=== PATIENT | female | born 1935 | race Caucasian/White ===

== ENCOUNTER 2019-04-02 21:50 | Inpatient (IN) | payer MEDICARE, MEDICAID ==
[~2019-04-02] VITALS: Ht 160 cm; Wt 64.1 kg
[2019-04-02 22:07] VITALS: Ht 160 cm; Wt 64.1 kg
--- NOTE | 2019-04-02 22:16 | NUR ---
DR OZUNA, ERP, AWARE OF PT'S POX 88-91% ON RA. PT TO BE PLACED ON O2 POST ABG TEST PER VERBAL INSTRUCTIONS. PT BREATHING EASY AND UNLABORED. NO OBVIOUS DISTRESS AT THIS TIME.
[2019-04-02 22:44] LABS: PLATELET COUNT 162 x10^3mcL (130-400); RED CELL DISTRIBUTION WIDTH 12.2 % (11.5-14.5)
[2019-04-02 22:45] LABS: BASOPHIL % 0 % (0-2)
[2019-04-02 22:56] LABS: CALCIUM 8.5 mg/dL (8.5-10.1); CARBON DIOXIDE 28.3 mmol/L (21-32); CHLORIDE SERUM 105 mmol/L (98-107); CREATININE SERUM 0.8 mg/dL (0.6-1.0); GLUCOSE SERUM 115 mg/dL (74-106); POTASSIUM SERUM 3.8 mmol/L (3.5-5.1); SODIUM SERUM 140 mmol/L (136-145)
[2019-04-02 22:58] LABS: microscopic required? NO
--- NOTE | 2019-04-02 22:59 | NUR ---
PT REPORTS FEELING BETTER AND LESS DISORIENTED SINCE APPLYING O2 VIA NC. DAUGHTER ALSO AT BEDSIDE AND REPORTS PT IS LOOKING BETTER AND APPEARS MORE ORIENTED THAN BEFORE. PT AAOX4, VSS, SPEAKS IN FULL CLEAR SENTENCES, BREATHING EASY AND UNLABORED. ASSISTED ON BEDPAN. URINE SPECIMEN COLLECTED, TESTED AND SENT TO LAB FOR ADDITIONAL TESTING. PT TO X-RAY AT THIS TIME.
[2019-04-02 23:08] LABS: UA SPECIFIC GRAVITY <=1.005 (1.005-1.035); urine erythrocyte NEGATIVE (NEGATIVE)
[2019-04-02 23:09] LABS: ALKALINE PHOSPHATASE 69 U/L (46-116); ALT/SGPT 13 U/L (14-59); AST/SGOT 14 U/L (15-37); BILIRUBIN TOTAL 0.56 mg/dL (0.20-1.00)
[2019-04-02 23:11] LABS: ALBUMIN 2.8 g/dL (3.4-5.0); TOTAL PROTEIN, SERUM 6.1 g/dL (6.4-8.2)
--- NOTE | 2019-04-02 23:34 | NUR ---
PT BEING ADMITTED. NO CHANGE IN STATUS AT THIS TIME. SON AT BEDSIDE.
[2019-04-03] VITALS (8 sets, daily range): BP systolic 87–119; BP diastolic 33–51
--- NOTE | 2019-04-03 00:08 | NUR ---
PT ADMITTED (TELE ROOM#239B) - REPORT CALLED TO CAMILLA PEREZ. OPPORTUNITY GIVEN TO ASK QUESTIONS. PT'S BEING TRANSPORTED TO FLOOR BY RN AND EMT. PT'S CARE COMPLETED BY THIS RN AT THIS TIME.
[2019-04-03 01:05] LABS: T3 TOTAL 0.51 ng/mL
--- NOTE | 2019-04-03 01:06 | NUR ---
RECEIVED PT FROM ED VIA IRA. ORIENTED PT TO ROOM AND SURROUNDINGS. IV NOTED TO R WRIST PATENT AND INTACT. TELE 9 PLACED ON PT READING STA. INSTRUCTED PT ON THE USE OF CALL LIGHT FOR ASSISTANCE. ENDORSED PT TO PRIMARY NURSE CAMILLA
[2019-04-03 01:10] LABS: CHOLESTEROL/HDL RATIO 3.2
--- NOTE | 2019-04-03 01:10 | NUR ---
RECEIVED PT FROM CHRIS MEDEL. PT AOX4. DENIES VASQUEZ/DIZZINESS. ON TELE #9, SR, HR 95. DENIES CP/PRESSURE. DENIES SOB/DIFFICULTY BREATHING, ON 2L NC. IV TO R. WRIST, INTACT AND PATENT. BP 94/39, NITRO PATCH REMOVED AND SKIN CLEANED. BED IN LOWEST POSITION. CALL LIGHT WITHIN REACH. WILL CONTINUE TO MONITOR.
[2019-04-03 01:19] LABS: FREE T4 0.94 ng/dL (0.76-1.46); FREE THYROXINE INDEX 2.1 ug/dL (1.4-4.5)
--- NOTE | 2019-04-03 01:47 | NUR ---
PT BP 87/33 MAP 59, HR 94. IN NO ACUTE DISTRESS. DR. TEE INFORMED, BOLUS ORDERED. BOLUS INITIATED. WILL CONTINUE TO MONITOR.
--- NOTE | 2019-04-03 02:50 | NUR ---
BOLUS COMPLETE, BP IS NOW 93/40 MAP 63, HR 89. PT ASYMPTOMATIC IN NO ACUTE DISTRESS. DR. TEE NOTIFIED. NO FURTHER ORDERS AT THIS TIME. WILL CONTINUE TO MONITOR.
[2019-04-03 06:43] LABS: CALCIUM 7.9 mg/dL (8.5-10.1); CHLORIDE SERUM 110 mmol/L (98-107); CREATININE SERUM 0.8 mg/dL (0.6-1.0); GLUCOSE SERUM 110 mg/dL (74-106); SODIUM SERUM 146 mmol/L (136-145)
[2019-04-03 06:44] LABS: PLATELET COUNT 148 x10^3mcL (130-400); RED CELL DISTRIBUTION WIDTH 12.7 % (11.5-14.5)
--- NOTE | 2019-04-03 07:20 | NUR ---
RECEIVED PT FROM SHIFT NURSE A/OX4 RESTIN IN BED. NO ACUTE DISTRESS NOTED. RESP EVEN AND UNLABORED ON 2LNC. 02 SAT 95% IV INTACT AND PATENT. FALL PRECAUTIONS IN PLACE. BED IN LOW POSITION. CALL LIGHT WITHIN REACH. WILL CONTINUE TO MONITOR.
[2019-04-03 07:27] LABS: BASOPHIL % 0 % (0-2)
--- NOTE | 2019-04-03 07:34 | NUR ---
RECEIVED CALL FROM LAB TROP [phone]. PAGED DR. DAVIS. AWAITING CALL BACK
--- NOTE | 2019-04-03 09:54 | NUR ---
PT RESTING IN BED TALKING WITH FAMILY MEMBERS. NO ACUTE DISTRESS NOTED. CALL LIGHT WITHIN REACH. WILL CONTINUE TO MONITOR.
--- NOTE | 2019-04-03 12:02 | NUR ---
PT SITTING UP IN BED. EXPESSED RELIEF OF BILATERAL LEG PAIN. CALL LIGHT WITHIN REACH. WILL CONTINUE TO MONITOIR.
--- NOTE | 2019-04-03 12:20 | NUR ---
PT AMBUALTING WITH PHYSICAL THERAPIST IN HALLWAY.
--- NOTE | 2019-04-03 13:30 | NUR ---
PT LEFT FOR PROCEDURE
--- NOTE | 2019-04-03 13:50 | NUR ---
PT BACK FROM PROCEDURE.
--- NOTE | 2019-04-03 14:00 | NUR ---
ECHOCARDIOGRAM PENDING-NOT IN ROOM
--- NOTE | 2019-04-03 16:15 | NUR ---
PT RESTING IN BED TALKING WTIH FAMILY MEMBERS. NO ACUTE DISTRESS NOTED. CALL LIGHT WITHIN REACH. WILL CONTINUE TO MONITOR.
--- NOTE | 2019-04-03 17:46 | NUR ---
RECEIVED CALL FROM LAB TROP [phone]. PAGED DR. DAVIS. AWAITING CALL BACK.
--- NOTE | 2019-04-03 18:25 | NUR ---
PT SITTING UP IN BED WATCHING TV. RESP EVEN AND UNLABORED ON 2L NC. IV INTACT AND PATENT. BED IN LOW POSITION. FAMILY MEMBER AT BEDSIDE. CALL LIGHT WITHIN REACH. WILL BE ENDORSED.
--- NOTE | 2019-04-03 19:58 | NUR ---
PT. RESTING IN BED COMFORTABLY, CHILDREN AT BEDSIDE. NO S/S OF COMPLAINTS AT THIS TIME. BREATHING EASY AND UNLABORED, ON 2L NC, 02 SAT 94%. A/O X4, CALM AND COOPERATIVE. TELE 9, NSR. NO COMPLAINTS OF CHEST PAIN, N/V, DIZZINESS OR PALPATATIONS. BOWEL SOUNDS ACTIVE X4, LAST BM 04/02. BLANCHABLE REDNESS TO COCCYX COVERED WITH OPTIFOAM. R FOREARM IV, CDI. BED AT LOWEST POSITION, CALL LIGHT WITHIN REACH. WILL CONTINUE TO MONITOR.
[2019-04-03] MEDS ORDERED: VENLAFAXINE37.5 M2 PO (23:10)
[2019-04-03] MEDS ORDERED: LEVOTHYROXIN0.025 M2 PO (23:11)
[2019-04-03] MEDS ORDERED: OXYBUTYNIN CHLOR5 MG PO (23:12)
[2019-04-03] MEDS ORDERED: PANTOPRAZOLE SO40 M1 PO (23:13)
[2019-04-03] MEDS ORDERED: PRIMIDONE50 MG PO (23:14)
--- NOTE | 2019-04-03 23:39 | NUR ---
PT. MED REC UPDATED. RESIDENT PAGED. WILL CONTINUIE TO MONITOR.
--- NOTE | 2019-04-04 00:10 | NUR ---
PT RESTING COMFORTABLY IN BED WITH EYES CLOSED. NO S/S OF PAIN AT THIS TIME. BREATHING EVEN AND UNLABORED ON 2L NC. BED AT LOWEST POSITION, CALL LIGHT WITHIN REACH. WILL CONTINUE TO MONITOR.
--- NOTE | 2019-04-04 00:24 | NUR ---
SPOKE IN PERSON TO RESIDENT SERGIO REGUARDING PTS MED REC BEING UPDATED, AND THE PT REQUESTING AMBIAN TO SLEEP. DR. HILL STATED "I'LL LOOK FOR IT." WAITING FOR ADDITIONAL ORDER. WILL CONTINUE TO MONITOR.
[2019-04-04 05:58] VITALS: BP 106/49
[2019-04-04 06:20] LABS: BASOPHIL % 0.2 % (0-2); PLATELET COUNT 140 x10^3mcL (130-400)
--- NOTE | 2019-04-04 06:24 | NUR ---
PT LAYING IN BED COMFORTABLY. NO S/S OF PAIN AT THIS TIME. BREATHING EVEN AND UNLABORED. NO SOB NOTED. NO SIGNIFICANT CHANGES THIS SHIFT. BED AT LOWEST POSITION. CALL LIGHT WITHIN REACH. WILL CONTINUE TO MONITOR.
[2019-04-04 06:51] LABS: CALCIUM 8.5 mg/dL (8.5-10.1); CARBON DIOXIDE 27.8 mmol/L (21-32); CHLORIDE SERUM 111 mmol/L (98-107); CREATININE SERUM 0.6 mg/dL (0.6-1.0); GLUCOSE SERUM 78 mg/dL (74-106); POTASSIUM SERUM 3.4 mmol/L (3.5-5.1); SODIUM SERUM 146 mmol/L (136-145)
--- NOTE | 2019-04-04 07:16 | NUR ---
RECEIVED PT FROM SHIFT NURSE ASLEEP BUT AROUSABLE. RESP EVEN AND UNLABORED ON 2L NC. IV INTACT AND PATENT. FAMILY MEMBER AT BEDSIDE. FALL PRECAUTIONS IN PLACE. BED IN LOW POSITION. CALL LIGHT WITHIN REACH. WILL CONTINUE TO MONITOR.
--- NOTE | 2019-04-04 08:18 | NUR ---
MADE PASTE UP WORKER CATHERINE AWARE OF TROP [phone]. NO NEW ORDERS GIVEN.
--- NOTE | 2019-04-04 08:30 | NUR ---
MADE DELIVERY ROOM CLERK TATIANA AWARE OF HOME MEDICATIONS.
--- NOTE | 2019-04-04 09:08 | NUR ---
PT EXPRESSED RELIEF OF LEG PAIN. NO ACUTE DISTRESS NOTED. FAMILY MEMBERS AT BEDSIDE. WILL CONTINUE TO MONITOR.
[2019-04-04 09:27] VITALS: BP 98/45
--- NOTE | 2019-04-04 09:50 | NUR ---
UA SAMPLE SENT TO LAB.
--- NOTE | 2019-04-04 10:44 | NUR ---
ECHOCARDIOGRAM COMPLETED.
--- NOTE | 2019-04-04 11:00 | NUR ---
PT AMBULATING WITH PHYSICAL THERPAIST.
--- NOTE | 2019-04-04 13:02 | NUR ---
PT C/O OF BILATERAL LEG PAIN. GAVE NORCO ORDERED. WILL CONTINUE TO MONITOR.
[2019-04-04 13:25] VITALS: BP 124/49
--- NOTE | 2019-04-04 13:38 | NUR ---
PT ASLEEP BUT AROUSABLE. FAMILY MEMBER AT BEDSIDE. CALL LIGHT WITHIN REACH. WILL CONTINUE TO MONITOR.
--- NOTE | 2019-04-04 15:20 | NUR ---
PT SITTING UP IN BED RESTING. NO C/O OF LEG PAIN AT THIS TIME. CALL LIGHT WITHN REACH. WILL CONTINUE TO MONITOR.
[2019-04-04 16:49] VITALS: BP 104/50
--- NOTE | 2019-04-04 18:22 | NUR ---
PT LEFT FOR PROCEDURE
--- NOTE | 2019-04-04 18:45 | NUR ---
PT BACK FROM PROCEDURE.
--- NOTE | 2019-04-04 18:55 | NUR ---
PT RESTING IN BED TALKING WITH FAMILY MEMBERS. RESP EVEN AND UNLABORED ON 2LNC. IVS INTACT AND PATENT. BED IN LOW POSITION. CALL LIGHT WITHIN REACH. WILL BE ENDORSED.
--- NOTE | 2019-04-04 20:08 | NUR ---
PT RESTING IN BED COMFORTABLY, FAMILY AT BEDSIDE. DENIES PAIN OR DISCOMFORT AT THIS TIME. A/O X4, CALM AND COOPERATIVE. TELE 9, NSR. DENIES CHEST PAIN, DIZZINESS, N/V, OR PALPATATIONS. PALPABLE PULSES, NO EDEMA NOTED. LUNG SOUNDS CTA, DENIES SOB. O2 SAT 100% ON 2L NC. BOWEL SOUNDS ACTIVE X4, NO ABD PAIN OR TENDERNESS TO PALPATION. SMALL RED BLISTER TO RLE IT TRAINING SPECIALIST. BALNCHABLE REDNESS TO COCCYX IT TRAINING SPECIALIST. R FOREARM IV CDI. BED AT LOWEST POSITION, CALL LIGHT WITHIN REACH. WILL CONTINUE TO MONITOR.
[2019-04-04 20:17] VITALS: BP 120/54
--- NOTE | 2019-04-04 23:19 | NUR ---
PT COMPLAINING OF INSOMIA, MEDICATED PT WITH PRN AMBIEN. WILL MONITOR.
--- NOTE | 2019-04-05 00:58 | NUR ---
PT RESTING COMFORTABLY IN BED. DAUGHTER SLEEPING AT BEDSIDE. NO COMPLAINTS OF PAIN AT THIS TIME. BREATHING EVEN AND UNLABORED ON 2L NC. DENIES SOB. BED AT LOWEST POSITION. CALL LIGHT WITHIN REACH. WILL CONTINUE TO MONITOR.
--- NOTE | 2019-04-05 02:17 | NUR ---
PT RESTING IN BED WITH EYES CLOSED. LIGHTLY SNORING. BREATHING EVEN/UNLABORED ON 2L NC. WILL CONTINUE TO MONITOR.
--- NOTE | 2019-04-05 02:21 | NUR ---
I HAVE REVIEWED THE DATA COLLECTION BY CHRIS JONES: THO STAFFORD ENTERED ON 04/04-04/05 I CONCUR WITH THE DATA AND ANY EXCEPTIONS OR COMMENTS ARE LISTED BELOW:
--- NOTE | 2019-04-05 02:35 | NUR ---
PT C/O HIP PAIN WITH MOVEMENT 5/10. NORCO GIVEN PER ORDER. WILL MONITOR FOR RELIEF.
[2019-04-05 05:27] VITALS: BP 118/63
--- NOTE | 2019-04-05 06:38 | NUR ---
PT RESTING IN BED COMFORTABLY. NO S/S OF PAIN AT THIS TIME. NO COMPLAINTS SOB ON 2L NC. NO SIGNIFICANT CHANGES THIS SHIFT. CALL LIGHT WITHIN REACH, BED AT LOWEST POSITION. WILL ENDORSE TO DAY NURSE.
[2019-04-05 06:42] LABS: BASOPHIL % 0.2 % (0-2); PLATELET COUNT 170 x10^3mcL (130-400)
[2019-04-05 07:11] LABS: CARBON DIOXIDE 34.4 mmol/L (21-32); CHLORIDE SERUM 108 mmol/L (98-107); CREATININE SERUM 0.6 mg/dL (0.6-1.0); GLUCOSE SERUM 80 mg/dL (74-106); POTASSIUM SERUM 4.1 mmol/L (3.5-5.1); SODIUM SERUM 146 mmol/L (136-145)
--- NOTE | 2019-04-05 07:39 | NUR ---
AT 0720 - RECEIVED PATIENT FROM NIGHT NURSE. AWAKE, ALERT AND ORIETNED X 4. MONITOR SHOWING SINUS RHYTHM; RATE 70'S. RESPIRATIONS REGULAR. ON O2 AT 2L/MIN. IV AT TKO RATE. FAMILY MEMEBER AT BEDSIDE.
[2019-04-05 09:35] VITALS: BP 130/46
--- NOTE | 2019-04-05 10:17 | NUR ---
AT 0800 - PATIENT HAS EATEN BREAKFAST. INSTRUCTED PATIENT IN USE OF INSENTIVE SPIROMETER. AT 0815 - MEDICATED WITH NORCO PER EMAR FOR C/O HIP PAIN. AT 0925 - REPORTS GOOD RELIEF OF PAIN. SAYS THAT SHE FEELS RELAXED. FAMILY AT BEDSIDE.
--- NOTE | 2019-04-05 12:49 | NUR ---
HAS EATEN SMALL AMOUNT OF FOOD FROM LUNCH TRAY. NOTED DROP IN O2 SAT TO 84% ON ROOM AIR - PATIENT HAD TAKEN NASAL CANNULA OFF WHILE EATING LUNCH. NOW BACK ON O2 VIA NC AT 2L. O2 SAT 95%.
[2019-04-05 13:59] VITALS: BP 147/50
--- NOTE | 2019-04-05 14:45 | NUR ---
AMBULATED IN HALLWAY USING WALKER AND PORTABLE O2. TOLERATED WELL. DENIES ANY PAIN. NOW SITTING IN CHAIR.
--- NOTE | 2019-04-05 15:45 | NUR ---
PATIENT AMBULATED TO BATHROOM X 1. NOW BACK IN BED.
[2019-04-05 18:31] VITALS: BP 121/55
--- NOTE | 2019-04-05 18:50 | NUR ---
AT 1700 - PAITENT OUT OF BED, SITTING IN CHAIR. FAMILY ATTENTIVE TO PATIENT'S NEEDS. EXPECTORATING BROWN SPUTUM. HAS BEEN USING INSENTIVE SPIROMETER EFFECTIVELY. AT 1815 - HAS EATEN DINNER. REMAINS IN CHAIR. VSS. AFEBRILE. GOOD URINE OUTPUT. VOIDING FREQUENTLY. WILL ENDORSE CARE TO NIGHT NURSE.
--- NOTE | 2019-04-05 20:00 | NUR ---
PT A/A/O X4, FAMILY AT BEDSIDE. PT DENIES DIZZINESS AND HEADACHE. BREATH SOUNDS CLEAR. BREATHING EVEN AND UNLABORED ON 2L NC, SPO2 98%. DENIES CHEST PAIN AND PRESSURE. BOWEL SOUNDS ACTIVE. NO C/O N/V AND ABD PAIN. IV SALINE LOCK INTACT ON THE RAC AND RIGHT FOREARM. MADE PT COMFORTABLE. PLACED CALL LIGHT WITH IN REACH. WILL CONTINUE TO MONITOR.
[2019-04-05 20:52] VITALS: BP 112/52
--- NOTE | 2019-04-05 21:23 | NUR ---
PT C/O HIP PAIN. GAVE PT NORCO PO. PT TOLERATED IT WELL. WILL CONTINUE TO MONITOR.
--- NOTE | 2019-04-05 23:11 | NUR ---
PT C/O HEART BURN. DR. EDWARD AND DR. MONDRAGON MADE AWARE. ORDERED PROTONIX PO. PT TOOK PROTONIX AND TOLERATED IT WELL. WILL CONTINUE TO MONITOR.
--- NOTE | 2019-04-06 01:45 | NUR ---
PT C/O DIFFICULTY SLEEPING. DR. DAMON NOTIFIED PERSONALLY. WAITING FOR ORDERS WILL CONTINUE TO MONITOR.
--- NOTE | 2019-04-06 02:17 | NUR ---
PT AWAKE. INFORMED THE PT THAT MD WAS NOTIFIED AND NO NEW ORDER THUS FAR. WILL CONTINUE TO MONITOR.
--- NOTE | 2019-04-06 06:11 | NUR ---
PT RESTING WITH EYES CLOSED. EASILY AROUSABLE WITH VERBAL STIMULI. NO C/O PAIN THUS FAR. MADE PT COMFORTABLE. WILL ENDORSE TO THE AM NURSE ACCORDINGLY.
[2019-04-06 06:20] VITALS: BP 120/50
[2019-04-06 06:35] LABS: BASOPHIL % 0.5 % (0-2); PLATELET COUNT 192 x10^3mcL (130-400); RED CELL DISTRIBUTION WIDTH 12.7 % (11.5-14.5)
[2019-04-06 06:49] LABS: CALCIUM 9.4 mg/dL (8.5-10.1); CARBON DIOXIDE 33.2 mmol/L (21-32); CHLORIDE SERUM 106 mmol/L (98-107); CREATININE SERUM 0.6 mg/dL (0.6-1.0); GLUCOSE SERUM 80 mg/dL (74-106); POTASSIUM SERUM 4.2 mmol/L (3.5-5.1); SODIUM SERUM 145 mmol/L (136-145)
--- NOTE | 2019-04-06 07:30 | NUR ---
PT ENDORSE TO ME THIS MORNING, LAYING IN BED RESTING. AA/O X4 BREAGTHING EVEN AND UNLABORED ON 2L NC, I.S AT BEDSIDE, TOLERATING WELL, NO ACUTE RESP DISTRESS OR SOB NOTED. TELE 9 SR NOTED, HR 60, DENIES ANY CP OR PRESSURE. BOWEL SOUNDS ACTIVE IN ALL FOUR QUADS.VOIDS FREELY, BEDPAN BRP WITH ASSIST. GEN WEAKNESS NOTED, OK TO SIT UP IN CHAIR. IV TO MARTIN RFA INTACT AND PATENT, HEPLOCKED. WILL CONTINUE TO MONITOR.
--- NOTE | 2019-04-06 08:22 | NUR ---
WILL ENDORSE TO CHRIS BOB.
--- NOTE | 2019-04-06 08:33 | NUR ---
RESUMING CARE OF PT. PT SITTING UP IN BED. RESPIRATORY THERAPIST AT BEDSIDE FOR BREATHING TREATMENT. FAMILY AT BEDSIDE. WILL CONTINUE TO MONITOR. CALL LIGHT IN REACH. BED IN LOWEST POSITION.
[2019-04-06 09:02] VITALS: BP 119/49
--- NOTE | 2019-04-06 10:53 | NUR ---
PT SITTING UP IN BED. NO ACUTE RESP DISTRESS NOTED ON 2L NC. GIVEN PO MEDS. TOLERATED WELL. PT DENIES ANY PAIN AT THIS TIME. PT STATES "I JUST FEEL REALLY TIRED. I DID NOT SLEEP WELL." IV TO RFA SALINE LOCKED. NO REDNESS OR SWELLING NOTED. WILL CONTINUE TO MONITOR. CALL LIGHT IN REACH. BED IN LOWEST POSITION.
--- NOTE | 2019-04-06 11:33 | NUR ---
BobbyT. NOTES PATIENT REFUSED TO BE SEEN BY P.T. AT THIS TIME, STATES WANTING TO GET SOME REST, WILL ATTEMPT AGAIN LATER.
[2019-04-06 12:16] VITALS: BP 112/52
--- NOTE | 2019-04-06 12:27 | NUR ---
PT IN BED RESTING. NO ACUTE RESP DSITRESS NOTED ON 2L NC. PHYSICAL THERAPIST KOLBY AT BEDSIDE. PT OUT OF BED AND USING WALKER ON RA. ASSISTED PT TO CHAIR AT BEDSIDE. SATING 89% ON RA. PLACED BACK ON NC 2L. PT C/O DIZZINESS WHEN AMBULATING. GIVEN PO MEDS. TOLERATED WELL. IV ANTIBIOITCS INFUSING ORDERED. ENCOURAGED PT TO USE CALL LIGHT WHEN WANTING TO GO BACK TO BED. WILL CONTINUE TO MONITOR. CALL LIGHT IN REACH. BED IN LOWEST POSITION.
--- NOTE | 2019-04-06 16:19 | NUR ---
PHYSICAL THERAPY DAILY NOTES CO-SIGN All documentation done by the Continuous Weld Pipe Mill Supervisor for 04/06/19 has been reviewed. I agree with the documentation. Reviewed/Co-Signed by: Ellyn Flores PT Documentation Done by:KOLBY FOSTER PTA
[2019-04-06 17:20] VITALS: BP 128/64
--- NOTE | 2019-04-06 18:34 | NUR ---
PT SITTING UP IN BED SLEEPING. NO ACUTE RESP DISTRESS NOTED ON 2L NC. FAMILY AT BEDSIDE. IV PATENT AND INFUSING TO RFA. NO REDNESS OR SWELLING NOTED. WILL ENDORSE TO LOOM CHANGEOVER OPERATOR RN. CALL LIGHT IN REACH. BED IN LOWEST POSITION.
--- NOTE | 2019-04-06 20:00 | NUR ---
RECEIVED PT IN BED, A/O X4, DENIES HEADACHE/DIZZINESS. KAKE,RESP. EVEN AND UNLABORED. ON ROOM AIR AT THIS TIME. NO ACUTE DISTRESS NOTED. DENIES CP OR ANY DISCOMFORT AT THIS TIME. AFEBRILE AND VITAL SIGNS STABLE.HL X2, INTACT AND PATENT. VOIDING FREELY VIA BEDPAN. HS CARE DONE. DAUGHTER AT THE BEDSIDE, VERY SUPPORTIVE. CALL LIGHT WITHIN REACH. WILL CONTINUE TO MONITOR.
[2019-04-06 20:19] VITALS: BP 140/49
--- NOTE | 2019-04-06 21:00 | NUR ---
CONSENT FOR PICC LINE INSERTION OBTAINED FROM PT,S DAUGHTER. WILL CONTINUE TO MONITOR.
--- NOTE | 2019-04-06 21:00 | NUR ---
COMPLAINED OF BACK PAIN,5/10, REQUESTING PAIN MED,MEDICATED WITH NORCO PO ORDERED. WILL CONTINUE TO MONITOR.
--- NOTE | 2019-04-06 22:22 | NUR ---
REQUESTED SLEEPING MED. MEDICATED WITH AMBIEN. WILL CONTINUE TO MONITOR.
--- NOTE | 2019-04-07 03:16 | NUR ---
EYES CLOSED, APPEARS ASLEEP, EASILY AROUSABLE. NO ACUTE DISTRESS NOTED. APPEARS ACOMFORTABLE. CALL LIGHT WITHIN REACH. WILL CONTINUE TO MONITOR.
[2019-04-07 05:36] VITALS: BP 130/58
--- NOTE | 2019-04-07 06:37 | NUR ---
SLEPT WELL . NO COMPLAINTS NOTED. AFEBRILE AND VITAL SIGNS STABLE. RESP. EVEN AND UNLABORED. NO ACUTE DISTRESS NOTED. DUE MEDS GIVEN ORDERED, DEVANTE. WELL.REPOSITIONED WTH ASSIST. VOIDING FREELY. WILL ENDORSE TO INCOMING NURSE.
--- NOTE | 2019-04-07 07:10 | NUR ---
RECIEVED PT FROM NIGHT NURSE. PT IS LAYING DOWN IN BED WITH HOB UP RESTING. PT LOOKS TO BE IN NO ACUTE DISTRESS AT THIS TIME AND DENIES ANY PAIN. RESPIRATIONS EVEN AND UNLABORED ON 2L NC. IV SITE PATENT WITH NO SIGNS OF ERYTHEMA OR SWELLING. BED IN LOWEST POSITION, CALL LIGHT WITHIN REACH. WILL CONTINUE TO MONITOR.
[2019-04-07 07:41] LABS: CALCIUM 9.6 mg/dL (8.5-10.1); CARBON DIOXIDE 31.6 mmol/L (21-32); CHLORIDE SERUM 106 mmol/L (98-107); CREATININE SERUM 0.7 mg/dL (0.6-1.0); GLUCOSE SERUM 80 mg/dL (74-106); SODIUM SERUM 143 mmol/L (136-145)
[2019-04-07 07:49] LABS: BASOPHIL % 0.9 % (0-2); PLATELET COUNT 194 x10^3mcL (130-400); RED CELL DISTRIBUTION WIDTH 12.7 % (11.5-14.5)
[2019-04-07 08:10] VITALS: BP 130/60
--- NOTE | 2019-04-07 11:00 | NUR ---
PICC LINE NURSE ARRIVED. OBTAINED ALL NEEDED SUPPLIES FOR PICC LINE NURSE. PT LOOKS TO BE IN NO ACUTE DISTRESS AT THIS TIME. CONSENT IS SIGNED AND IN THE CHART. WILL CONITNUE TO MONITOR.
[2019-04-07] MEDS ORDERED: NOVAPLUS ZOSYN50 ML IV (11:02)
--- NOTE | 2019-04-07 11:30 | NUR ---
PICC LINE INSERTED. PRODUCTION GENERALIST SARWAT AWARE. STAT CHEST X-RAY ORDERED TO VERIFY PLACEMENT. PT LOOKS TO BE IN NO ACUTE DISTRESS AND DENIES ANY PAIN AT THIS TIME. WILL CONITNUE TO MONITOR.
[2019-04-07 11:41] VITALS: BP 132/58
--- NOTE | 2019-04-07 12:05 | NUR ---
RADIOLOGY AT BEDSIDE TO VERIFY PICC LINE PLACEMENT.
--- NOTE | 2019-04-07 15:00 | NUR ---
HOME O2 EVAL DONE AND GATHERED THE FOLLOWING DATA: SPO2 ON RA WHILE AT REST IS 91%, SPO2 ON RA WHILE AMBULATING 80%, SPO2 ON OXYGEN WHILE AMBULATING IS 94%. HOME EVAL PERFORMED WITH PHYSICAL THERAPIST. NO INCIDENT WAS NOTED. CLIPPER MACHINE OPERATOR AND RN IN CHARGE FOR THE PT INFORMED. WILL CONT TO MONITOR
[2019-04-07 15:54] VITALS: BP 132/58
--- NOTE | 2019-04-07 16:55 | NUR ---
PHYSICAL THERAPY DAILY NOTES CO-SIGN All documentation done by the Route Vending Machine Servicer for 04/07/19 has been reviewed. I agree with the documentation. Reviewed/Co-Signed by: Aureliano Shah PT Documentation Done by:KOLBY FOSTER PTA
[2019-04-07 18:05] VITALS: BP 138/56
--- NOTE | 2019-04-07 18:30 | NUR ---
PT IS LAYING DOWN IN BED WITH HOB UP RESTING. RESPIRATIONS EVEN AND UNLABORED ON 2L NC. PICC LINE IS PATENT AND FLUSHES WITH BLOOD RETURN. BED IN LOWEST POSITION, CALL LIGHT WITHIN REACH. WILL ENDORSE TO ONCOMING SHIFT.
--- NOTE | 2019-04-07 20:00 | NUR ---
RECEIVED PT IN BED, RESTING QUIETLY. [place] DENIES PAIN OR ANY DISCOMFORT AT THIS TIME. RESP. EVEN AND UNLABORED. ON ROOM AIR, DENIES SOB. NO ACUTE DISTRESS NOTED. ABD. SOFT, NON DISTENDED, BS ACTIVE. NO N/V NOTED. PICC LINE TO RAC, WITH DOUBLE LUMEN, INTACT AND PATENT, SITE DRESSING CLEAN. VOIDS FREELY VIA BEDPAN. ASSISTED WITH HS CARE. CALL LIGHT WITHIN REACH. WILL CONTINUE TO MONITOR.
[2019-04-07 21:19] VITALS: BP 126/50
--- NOTE | 2019-04-07 22:22 | NUR ---
REQUESTED SLEEPING MED, MEDICATED WITH AMBIEN ORDERED. WILL CONTINUE TO MONITOR.
--- NOTE | 2019-04-08 01:58 | NUR ---
EYES CLOSED, APPEARS ASLEEP, EASILY AROUSABLE. RESP. EVEN AND UNLABORED. 02 AT 2L/MIN VIA NC , DEVANTE. WELL. NO ACUTE DISTRESS NOTED. WILL CONTINUE TO MONITOR.
[2019-04-08 05:21] VITALS: BP 130/55
--- NOTE | 2019-04-08 06:17 | NUR ---
NO COMPLAINTS NOTED. NO SIGNIFICANT CHANGE NOTED IN PT,S CONDITION.AFEBRILE AND VITAL SIGNS STABLE. RESP. EVEN AND UNLABORED. NO ACUTE DISTRESS NOTED. DUE MEDS GIVEN ORDERED, DEVANTE. WELL. KEPT COMFORTABLE. WILL CONTINUE TO MONITOR.
[2019-04-08 09:16] VITALS: BP 117/52
--- NOTE | 2019-04-08 10:15 | NUR ---
AT 0720 - RECEIVED PATIENT FROM NIGHT NURSE. SLEEPING. RESPIRATIONS REGULAR. AT 0830 - PATIENT AWAKE, ALERT AND ORIENTED. REFUSED BREAKFAST. PATIENT IS FOR DISCHARGE HOME TODAY AFTER HOME O2 EQUIPMENT ARRIVES. AT 0950 - PATIENT'S FAMILY AT BEDSIDE. PATIENT SITTING UP. FAMILY REPROTS NO BM FOR 9 DAYS. SPOKE WITH POLISHER APPRENTICE MARIO. SHE WUILL PLACE ORDER. AT 1010 - MEDICATED WITH LACTULOSE PER EMAR. PATIENT SITTING IN CHAIR. PT AT BEDSIDE TO AMBULATE PATIENT.
--- NOTE | 2019-04-08 12:15 | NUR ---
AT 1135 - RECEIVED CALL FROM VINI AT [facility]. TEL [phone] HE WOULD LIKE TO BE CALLED WITH TIME OF PATIENT'S DISCHARGE. PATIENT REPORTS THAT SHE WILL CALLED BY COMPANY DELIVERING HER HOME O2 AND THAT SHE WAS TOLD IT WOULD BE DELIVERED BETWEEN 14 -1600 TODAY
--- NOTE | 2019-04-08 13:33 | NUR ---
SEEN BY DR CORONADO. MARIA LUZ HAS EATEN SOME LUNCH. SLEEPING ON AND OFF TODAY. HAS URINARY FREQUENCY. VOIDING IN BEDPAN.
--- NOTE | 2019-04-08 13:51 | NUR ---
PHYSICAL THERAPY DAILY NOTES CO-SIGN All documentation done by the Glue Jointer Operator for 04/08/19 has been reviewed. I agree with the documentation. Reviewed/Co-Signed by: Ellyn Flores PT Documentation Done by:KOLBY FOSTER PTA
[2019-04-08 16:59] VITALS: BP 120/52
--- NOTE | 2019-04-08 17:52 | NUR ---
AT 1655 - O2 EQUIPMENT DELIVERED TO PATIENT'S ROOM - CONCENTRATOR AND 4 CYLINDERS OF OXYGEN. CALLED [employer] AND NOTIFIED THEM THAT PATIENT WILL BE GOING HOME AFTER 1800 TONIGHT. THEY WILL DELIVER MEDICATIONS TO PATIENT'S HOME AT 1930. CALLED PATIENT'S FAMILY AND SPOKE WITH SON. INFORMED HIM THAT OXYGEN HAS BEEN DELIVERED AND THAT PATIENT CAN NOW BE DISCHARGED HOME AFTER RECEIVING 1800 DOSE OF ZOSYN. PATIENT'S DAUGHTER IS APPARENTLY ON HER WAY TO THE HOSPITAL. AT 1740 - PATIENT EATING DINNER. IV ZOSYN NOW IN PROGRESS.
--- NOTE | 2019-04-08 18:56 | NUR ---
AT 1825 - PICC LINE SALINE LCOKED AFTER COMPLETION OF IV ZOSYN. MARIA LUZ HAS EATEN DINNER. PRINTED DISCHARGE INSTRUCTIONS GIVEN AND EXPLAINED TO PATIENT AND SON.
--- NOTE | 2019-04-08 19:01 | NUR ---
DISCHARGED HOME WITH FAMILY. TAKEN TO CAR IN WHEELCHAIR WITH ALL OXYGEN EQUIPMENT.
== END 2019-04-08 19:00 | disposition home health service (06) | DRG 871 ==
LOC: ED 21:50 → DU 23:50 → MU 23:50 → DU 04-03 00:35 → MU 04-06 16:05
PROVIDERS: Emergency Medicine; ADMIT Internal Medicine
DX: A41.9 Sepsis, unspecified organism (principal); J18.9 Pneumonia, unspecified organism; E43 Unspecified severe protein-calorie malnutrition; J96.01 Acute respiratory failure with hypoxia; I24.9 Acute ischemic heart disease, unspecified; R32 Unspecified urinary incontinence; M19.90 Unspecified osteoarthritis, unspecified site; Z68.21 Body mass index [BMI] 21.0-21.9, adult; Z87.440 Personal history of urinary (tract) infections
CPT/HCPCS: 36600; 83880; 84439; 94150; 97110-GP; 97116-GP; 97530-GP; C1751; G0378; J0696; J1644; J2543; J7030; J7050; J7060; J7613; J7620; J7626; J7644; Q0092; Q9967